=== PATIENT | female | born 1985 | race Caucasian/White ===

== ENCOUNTER 2024-01-29 10:49 | Emergency (ER) | payer MEDICAID ==
[~2024-01-29] VITALS: Ht 157.5 cm; Wt 56.7 kg
[2024-01-29] MEDS: TDAP [DIPH/PERTUSSIS/TET] 0.5 ML VIAL IM ONE (14:00)
[2024-01-29] MEDS ORDERED: HYDR-4303 PO (14:05)
[2024-01-29] MEDS ORDERED: CEPH-570 PO (14:05)
[2024-01-29] MEDS: BACI/NEOM/POLY B OINT PKT 1 UDPKT PACKET TP ONE (14:08)
[2024-01-29] MEDS ORDERED: TDAP [DIPH/PERTUSSIS/TET] 0.5 ML VIAL IM ONE (14:08)
[2024-01-29 14:36] VITALS: BP 121/64; TEMP 98; O2SAT 99
== END 2024-01-29 14:37 | disposition home or self-care (01) ==
LOC: ER 11:11
DX: S68.123A Partial traumatic metacarpophalangeal amputation of left middle finger, initial encounter (principal); W26.0XXA Contact with knife, initial encounter; Y92.89 Other specified places as the place of occurrence of the external cause; Y99.8 Other external cause status
CPT/HCPCS: 73140-TC; 90715